=== PATIENT | female | born 1985 | race Caucasian/White ===

== ENCOUNTER 2017-01-02 14:51 | Emergency (ER) | payer OTHER ==
[~2017-01-02] VITALS: Ht 170.2 cm; Wt 108.4 kg
--- NOTE | ~2017-01-02 | CR72 ---
[facility]. [facility] A Service of [facility] RADIOLOGY TEXT RESULTS PATIENT: SLOAN MEDEL LOCATION: SED : 84 UNIT #: [id number] AGE: [address]: Marysol Castanon MD SEX: F ORDER DR: [id number] [address] [address] [id number] E MR#: [id number] Acc #: [id number] NAME: SLOAN MEDEL : 1985 SEX: F STUDY DATE/TIME: 01/02/2017 16:01 UNIT: SED ROOM: STUDY DESCRIPTION: CR Chest Single View Portable Attending Physician: Marysol Castanon M.D. Ordering Physician: Marysol Castanon M.D. Primary Care Physician: No Primary Care Physician MEDICAL IMAGING REPORT This report is preliminary unless electronic signature is present. EXAM Portable chest. HISTORY Chest pain began after lunch today. History of anxiety, vasovagal syncope. COMPARISON 05/29/2016 FINDINGS Portable view chest demonstrates low lung volumes. No infiltrates or effusions. Heart, mediastinum, great vessels and bony thorax appear normal. No pneumothorax. Overall, no acute findings. Dictated by... iMchael oCnway M.D. THIS IS AN ELECTRONICALLY VERIFIED REPORT Michael Conway M.D. at 01/03/2017 2:30 PM FELIBERTO/hector TD: 01/03/2017 01:43 JOB #: [id number] MEDICAL IMAGING REPORT Page 1 of 1
--- NOTE | ~2017-01-02 | EKG ---
PATIENT: SLOAN MEDEL UNIT #: [id number] Ventricular Rate: 77 BPM Atrial Rate: 77 BPM P-R Interval: 132 ms QRS Duration: 90 ms Q-T Interval: 388 ms QTC Calculation(Bezet): 439 ms P [place]: 33 degrees Calculated R [place]: 52 degrees Calculated T [place]: 45 degrees Diagnosis Line: Normal sinus rhythm Diagnosis Line: Normal ECG Diagnosis Line: When compared with ECG of 29-MAY-2016 14:41, Diagnosis Line: Vent. rate has decreased BY 45 BPM Diagnosis Line: Confirmed by KIAN SANDERSON MD ([id number]) on 01/05/2017 Diagnosis Line: 7:00:35 PM INTERPRETING MD: MARIA E ARTIS
--- NOTE | ~2017-01-02 | CT4 ---
[facility]. [facility] A Service of [facility] RADIOLOGY TEXT RESULTS PATIENT: SLOAN MEDEL LOCATION: SED : 84 UNIT #: [id number] AGE: [address]: Marysol Castanon MD SEX: F ORDER DR: [id number] [place] [id number] E MR#: [id number] Acc #: [id number] NAME: SLOAN MEDEL : 1985 SEX: F STUDY DATE/TIME: 01/02/2017 16:37 UNIT: SED ROOM: STUDY DESCRIPTION: CT Abd and Pelv Wo Cont Attending Physician: Marysol Castanon M.D. Ordering Physician: Marysol Castanon M.D. Primary Care Physician: Primary Care Physician No MEDICAL IMAGING REPORT This report is preliminary unless electronic signature is present. EXAM CT abdomen and pelvis, noncontrast, 01/02/2017 HISTORY 31-year-old female in the ED complaining of new onset generalized abdomen pain and back pain today. Some nausea. TECHNIQUE CT examination of the abdomen and pelvis was performed without oral or IV contrast, as requested. This CT exam was performed with one or more of the following radiation dose reduction techniques: automatic exposure control, adjustment of mA and/or kV according to patient size, and iterative reconstruction. FINDINGS ABDOMEN: Cholecystectomy. No significant bile duct dilatation. Liver, pancreas and spleen are normal in size and appearance without contrast. Both kidneys are negative with no visible nephrolithiasis and no evidence of urinary obstruction. Small bowel and colon are normal in caliber and appearance, as imaged. The appendix is normal. PELVIS FINDIGNS: Uterus, ovaries, bladder and rectum are within normal limits. No inguinal hernia. Small periumbilical hernia contains abdominal fat. Limited lung base images show no active disease in the lower chest. IMPRESSION 1. No acute abnormality within the abdomen or pelvis. 2. Cholelithiasis. No bile duct dilatation. [facility] A Service of [facility] RADIOLOGY TEXT RESULTS PATIENT: SLOAN MEDEL LOCATION: SED : 84 UNIT #: [id number] AGE: [address]: Marysol Castanon MD SEX: F ORDER DR: 3. No nephrolithiasis or evidence of urinary obstruction. Normal appendix. 4. Small periumbilical hernia containing abdominal fat. Dictated by... Homer Campbell M.D. THIS IS AN ELECTRONICALLY VERIFIED REPORT Homer Campbell M.D. at 01/03/2017 9:47 AM FIDE/trey TD: 01/03/2017 03:22 JOB #: [id number] MEDICAL IMAGING REPORT Page 1 of 1
[~2017-01-02 14:51] MED LIST: PRILOSEC PO; PRISTIQ ER25 MG; [UNRECOGNIZED DRUG - REMARK]
[2017-01-02] MEDS ORDERED: VERAPAMIL ER240 M1 (15:07)
[2017-01-02 15:42] LABS: BASOPHIL# 0.1 X10e3 (0-0.3); BASOPHIL% 0.7 % (0-2.5); EOSINOPHIL# 0.1 X10e3 (0-0.7); EOSINOPHIL% 1.1 % (0.0-7.0); HEMATOCRIT 42.5 % (35.0-45.0); HEMOGLOBIN 14.2 gm/dL (12.0-16.0); LYMPHOCYTE# 3.2 X10e3 (1.0-3.5); LYMPHOCYTE% 23.3 % (17.0-45.0); MEAN CELL VOLUME 83.8 FL (83-96); MEAN CORPUSCULAR HEMOGLOBIN 28.1 PG (28-34); MEAN CORPUSCULAR HGB CONC 33.5 g/dL (30-36); MEAN PLATELET VOLUME 7.6 FL (6.5-11.5); MONOCYTE# 1.1 X10e3 (0-1.0); MONOCYTE% 7.8 % (3.0-12.0); NEUTROPHIL# 9.1 X10e3 (1.5-7.1); NEUTROPHIL% 67.1 % (40-75); PLATELET COUNT 322 X10e3 (140-420); RED BLOOD COUNT 5.07 X10e (3.90-5.30); RED CELL DISTRIBUTION WIDTH 13.6 % (11.0-15.5); WHITE BLOOD COUNT 13.5 X10e3 (4.0-10.5)
[2017-01-02 15:45] LABS: POC - CKMB <1.0 ng/mL (0.0-7.9)
[2017-01-02 15:46] LABS: POC - MYOGLOBIN 42.5 ng/mL (0.0-169.0); POC - TROPONIN <0.05 ng/mL (<=0.05)
[2017-01-02 15:55] LABS: INR 1.1; PROTHROMBIN TIME (PATIENT) 12.1 SECONDS (9.5-12.4)
[2017-01-02 16:03] LABS: PARTIAL THROMBOPLASTIN TIME 21.9 SECONDS (25.6-38.1)
[2017-01-02 16:04] LABS: ALBUMIN SERUM 3.8 g/dL (3.5-5.0); BILIRUBIN, DIRECT 0.4 mg/dL (0.0-0.2); BILIRUBIN,INDIRECT 0.9 mg/dL (0.0-0.9); BILIRUBIN,TOTAL 1.3 mg/dL (0.2-2.0); BUN/CREATININE RATIO 14.28; CALCIUM SERUM 8.1 mg/dL (8.4-10.2); CREATININE SERUM 0.7 mg/dL (0.6-1.4); GLOM FILT RATE Estimated 114.6 mL/min (>60); MAGNESIUM 2.1 mg/dL (1.6-3.0); POTASSIUM 3.2 mmol/L (3.5-5.1)
[2017-01-02 16:23] LABS: DIFF IND NO
[2017-01-02 17:42] LABS: POC - CKMB <1.0 ng/mL (0.0-7.9)
[2017-01-02 17:43] LABS: POC - MYOGLOBIN 25.4 ng/mL (0.0-169.0); POC - TROPONIN <0.05 ng/mL (<=0.05)
== END 2017-01-02 17:50 | disposition home or self-care (01) ==
LOC: SED 14:51
PROVIDERS: Student in an Organized Health Care Education/Training Program
DX: R07.89 Other chest pain (principal); F41.9 Anxiety disorder, unspecified; K21.9 Gastro-esophageal reflux disease without esophagitis; I10 Essential (primary) hypertension; F17.200 Nicotine dependence, unspecified, uncomplicated; Z90.49 Acquired absence of other specified parts of digestive tract; Z98.51 Tubal ligation status; Z79.899 Other long term (current) drug therapy
CPT/HCPCS: 36415; 71010; 74176; 80048; 80076; 82553; 83690; 83735; 83874; 84484; 84703; 85025; 85610; 85730; 93005; 96361; 96374; 96375; 99285; C9113; J2405